=== PATIENT | female | born 1985 | race Caucasian/White ===

== ENCOUNTER → 2021-09-22 | Outpatient (CLI) | payer OTHER ==
--- NOTE | 2021-09-22 16:33 | XR ---
No sacral spine HISTORY: Low back pain 5 views lumbosacral spine Lumbar vertebral bodies show preserved height and alignment. There is loss of disc height in the inte rvertebral levels L3-4, L4-5 and L5-S1 with associated vacuum phenomenon, multilevel spondylosis. Scl erosis is present in the posterior elements of the lower lumbar spine. No evident spondylolysis on ob lique views. There is a slight spinal curvature. IMPRESSION: Degenerative disc disease and facet arthropathy.
== END | disposition home or self-care (01) ==
LOC: RADXRYALE 15:37
PROVIDERS: ATTEND Physician Assistant Medical
DX: M51.37 Other intervertebral disc degeneration, lumbosacral region (principal); M47.817 Spondylosis without myelopathy or radiculopathy, lumbosacral region
CPT/HCPCS: 72110

== ENCOUNTER 2023-10-25 08:18 | Day surgery (SDC) | payer OTHER ==
[~2023-10-25 08:18] MED LIST: LIDOCAINE 1% (10MG/ML) FOR IV START INTRADERMA PRN
[2023-10-25] MEDS: LACTATED RINGERS 1,000 ML IV SCH (08:50)
[2023-10-25 08:51] LABS: Glucose,Whole Blood 176 mg/dL (70-110)
[2023-10-25 08:57] VITALS: RESP 16; TEMP 98.4
[2023-10-25] MEDS ORDERED: MIDAZOLAM 2 MG/2 ML VIAL ONE (09:02)
[2023-10-25] MEDS ORDERED: fentaNYL (PF) 50 MCG/ML 2 ML AMP ONE (09:02)
[2023-10-25] MEDS ORDERED: LIDOCAINE 1% INJ 10MG/ML (20 ML MDV) ONE (09:02)
[2023-10-25] MEDS ORDERED: PROPOFOL 10 MG/ML 20 ML VIAL IV ONE (09:02)
--- NOTE | 2023-10-25 09:36 | P.PCN ---
Date of Procedure: 10/25/23 Procedure(s) Performed: Brief history: Patient is a pleasant 38-year-old white female scheduled for an elective upper endoscopy as well as colonoscopy as a part of evaluation of GERD/intermittent nausea vomiting with change in bowel habits for the last 2 years duration Procedure performed: Esophagogastroduodenoscopy with biopsy Colonoscopy Preoperative diagnosis: GERD/intermittent nausea vomiting Change in bowel habits Anesthesia: MAC Procedure: After informed consent was obtained from the patient was brought into the endoscopy unit and IV sedation was administered by anesthesia under continuous monitoring. Initially upper endoscopy was done. The Olympus GF 160 video endoscope was inserted inserted into the mouth and esophagus intubated without any difficulty and was gradually advanced into the stomach and duodenum and carefully examined. The bulb and second part of the duodenum appeared normal. Biopsies were done from the duodenum to evaluate for celiac disease. The scope was then withdrawn into the stomach adequately insufflated with air and upon careful examination the antrum had mild gastritis and biopsies were done from this area. Mucosa of the body, cardia and fundus appeared normal. The scope was then withdrawn into the esophagus. The GE junction was located at 40 cm to the incisors. It appeared regular with no erythema erosions or ulcerations. Rest of the esophagus appeared normal. Patient tolerated the procedure well. At this time the patient continued to remain sedation. Initial digital rectal examination was normal. Olympus CF 160 video colonoscope was then inserted into the rectum and gradually advanced to the cecum without any difficulty. Careful examination was performed as the scope was gradually being withdrawn. The prep was excellent. The cecum, ascending colon, transverse colon, descending colon, sigmoid colon and rectum appeared normal. Retroflexion was performed in the rectum and no lesions were noted. Patient tolerated the procedure well. Impression: 1. Upper endoscopy revealed mild antral gastritis but no evidence of esoph agitis or peptic ulcer disease 2. Colonoscopy was within normal limits with no evidence of colorectal neoplasia. Recommendations: Findings of this examination were discussed with the patient as well as her family. She was advised to follow with the biopsy results. Recommend repeat screening colonoscopy in 10 years.
[2023-10-25 09:59] LABS: Glucose,Whole Blood 170 mg/dL (70-110)
[2023-10-25 10:39] VITALS: BP 132/71; PULSE 70
== END 2023-10-25 10:28 | disposition home or self-care (01) ==
LOC: ORWHC2ENDO 08:18
PROVIDERS: ATTEND Internal Medicine Gastroenterology
DX: K29.50 Unspecified chronic gastritis without bleeding (principal); D72.820 Lymphocytosis (symptomatic); K21.9 Gastro-esophageal reflux disease without esophagitis; R19.4 Change in bowel habit; Z79.899 Other long term (current) drug therapy
CPT/HCPCS: 88305; 45378; 43239; J2250; J2001; J3010; J2704

== ENCOUNTER 2023-12-09 07:04 | Day surgery (SDC) | payer BC, OTHER ==
[2023-12-05 16:37] VITALS: BMI 38.0
[2023-12-09] MEDS: SODIUM CHLORIDE 0.9% 1,000 ML IV SCH (07:40)
[2023-12-09 07:45] LABS: Glucose,Whole Blood 223 mg/dL (70-110)
[2023-12-09 08:20] VITALS: BP 128/88; PULSE 87; RESP 18; TEMP 97.1
[2023-12-09] MEDS: SODIUM CHLORIDE 0.9% 500 ML 500 ML IV ONE (08:40)
--- NOTE | 2023-12-09 17:55 | P.EPPROC ---
- EP Procedure Note Electrophysiology Procedure Note: Diagnosis Recurrent syncope Twelve-lead EKG shows sinus rhythm normal CT narrow QRS normal ST segments normal QT interval Tilt table test per protocol Baseline blood pressure 136/80 mmHg heart rate in the 70s Patient was tilted upright in angle of 70 degrees per protocol mild decrease in blood pressure by about 10-15 points systolic. This was brief and thereafter her blood pressure stabilized Heart rates remained in the 80s and 90s There was no evidence for neurocardiogenic syncope No evidence for dysautonomia The patient felt lightheaded warm and nauseous She also complained of being short of breath briefly No abnormalities were noted in heart rate or blood pressure during the symptoms Impression normal twelve-lead EKG Very mild and brief orthostasis immediately upon assuming upright position No evidence for neurocardiogenic syncope or dysautonomia
== END 2023-12-09 10:00 | disposition home or self-care (01) ==
LOC: CATHEP 07:04
PROVIDERS: ATTEND Internal Medicine Clinical Cardiac Electrophysiology
DX: R55 Syncope and collapse (principal); I10 Essential (primary) hypertension; E78.5 Hyperlipidemia, unspecified; Z79.899 Other long term (current) drug therapy
CPT/HCPCS: 81025; 93660

== ENCOUNTER → 2024-09-11 | Outpatient (CLI) | payer BC, OTHER ==
--- NOTE | 2024-09-11 14:04 | XR ---
EXAMINATION TYPE: XR Hip Complete RT DATE OF EXAM: 09/11/2024 1:45 PM COMPARISON: None. CLINICAL INDICATION: Female, 39 years old with history of [id number] RT HIP PAIN, pain TECHNIQUE: 2 view(s) obtained. FINDINGS: Femoral head articulates with the acetabulum. Joint space is preserved. No acute fractures or disloca tions evident. IMPRESSION: 1. No acute osseous abnormality right hip [facility], , 09/11/2024 2:01 PM
== END | disposition home or self-care (01) ==
LOC: RADXRYALE 13:35
PROVIDERS: ATTEND Physician Assistant Medical
DX: M25.551 Pain in right hip (principal)
CPT/HCPCS: 73502